=== PATIENT | female | born 1995 | race Caucasian/White ===

== ENCOUNTER 2017-03-05 00:43 | Emergency (ER) | payer MEDICAID, OTHER ==
[~2017-03-05] VITALS: Ht 162.6 cm; Wt 81.0 kg
[~2017-03-05 00:43] MED LIST: DENIES
[2017-03-05 00:48] VITALS: Ht 162.6 cm; Wt 81.0 kg
[2017-03-05] MEDS ORDERED: ONDANSETRON 4 MG INJ IV STA (01:24)
[2017-03-05] MEDS ORDERED: morphine 4 MG/ML VIAL IV STA (01:24)
[2017-03-05] MEDS ORDERED: SOD CHLORIDE 0.9% 1,000 ML IV STA (01:24)
[2017-03-05 02:02] LABS: BASOPHILS % 0.1 % (0.0-2.0); EOSINOPHILS # 0.1 10^3/ul (0.0-0.5); EOSINOPHILS % 1.2 % (0.0-7.0); HEMATOCRIT 36.6 % (37.0-47.0); HEMOGLOBIN 12.4 g/dl (12.0-16.0); LYMPHOCYTES % 31.1 % (15.0-51.0); MEAN CORPUSCULAR HEMOGLOBIN 31.8 pg (29.0-33.0); MEAN CORPUSCULAR HGB CONC 33.9 g/dl (32.0-37.0); MEAN CORPUSCULAR VOLUME 93.8 fl (82.0-101.0); MEAN PLATELET VOLUME 12.6 fl (7.4-10.4); MONOCYTE # 0.6 10^3/ul (0.3-0.9); MONOCYTES % 6.4 % (0.0-11.0); PLATELET COUNT 241 10^3/UL (140-415); WHITE BLOOD COUNT 9.8 10^3/ul (4.8-10.8)
--- NOTE | 2017-03-05 02:06 | ERA ---
ER Documentation Chief Complaint Date/Time DATE: 03/05/17 TIME: 02:02 Chief Complaint c/o pelvic pain x 1 day radiates to abdomen and chest. HPI 22-year-old female with a chief complaint of upper abdominal pain beginning shortly after eating this afternoon. Patient also complains of lower pelvic pain. Denies shortness of breath, chest pain, cough, back pain. Patient states that she has had symptoms like this before and was diagnosed with cholelithiasis. Patient has also had ovarian cysts. Pain is 7 out of 10. Has no other complaints and describes no other associated manifestations. Has not taken any medications to relieve the symptoms. ROS All systems reviewed and are negative except as per history of present illness. Medications Home Meds Reported Medications [Denies] No Conflict Check 11/05/09 Allergies Allergies: Coded Allergies: No Known Drug Allergies (Verified Allergy, Mild, 03/26/11) PMhx/Soc History of Surgery: Yes (STATES HAD INCISSION DUE EYE INFECTION 4 YEARS AGO) Anesthesia Reaction: No Hx Neurological Disorder: No Hx Respiratory Disorders: No Hx Cardiac Disorders: No Hx Psychiatric Problems: No Hx Miscellaneous Medical Probl: No Hx Alcohol Use: No Hx Substance Use: No Hx Tobacco Use: No Smoking Status: Never smoker Physical Exam Vitals Vital Signs Date Time Temp Pulse Resp B/P Pulse Ox O2 Delivery O2 Flow Rate FiO2 03/05/17 00:48 97.1 77 18 127/60 99 Physical Exam Const: [] Head: Atraumatic Eyes: Normal Conjunctiva ENT: Normal External Ears, Nose and Mouth. Neck: Full range of motion..~ No meningismus. Resp: Clear to auscultation bilaterally Cardio: Regular rate and rhythm, no murmurs Abd: Soft, nondistended. Right upper quadrant tenderness. No pelvic tenderness. No suprapubic tenderness Normal bowel sounds Skin: No petechiae or rashes Back: No midline or flank tenderness Ext: No cyanosis, or edema Neur: Awake and alert. Neurovascularly intact bilaterally. Psych: Normal Mood and Affect Result Diagram: 03/05/1713403/05/17134 Results 24 hrs Laboratory Tests Test 03/05/17 01:35 03/05/17 02:39 White Blood Count 9.810^3/ul Red Blood Count 3.9010^6/ul Hemoglobin 12.4g/dl Hematocrit 36.6% Mean Corpuscular Volume 93.8fl Mean Corpuscular Hemoglobin 31.8pg Mean Corpuscular Hemoglobin Concent 33.9g/dl Red Cell Distribution Width 12.0% Platelet Count 39179^3/UL Mean Platelet Volume 12.6fl Neutrophils % 61.0% Lymphocytes % 31.1% Monocytes % 6.4% Eosinophils % 1.2% Basophils % 0.1% Nucleated Red Blood Cells % 0.0/100WBC Neutrophils # 6.010^3/ul Lymphocytes # 3.010^3/ul Monocytes # 0.610^3/ul Eosinophils # 0.110^3/ul Basophils # 0.010^3/ul Nucleated Red Blood Cells # 0.010^3/ul Sodium Level 139mmol/L Potassium Level 3.9mmol/L Chloride Level 105mmol/L Carbon Dioxide Level 29mmol/L Anion Gap 9 Blood Urea Nitrogen 13mg/dl Creatinine 0.65mg/dl Glucose Level 93mg/dl Calcium Level 9.4mg/dl Total Bilirubin 0.0mg/dl Direct Bilirubin 0.00mg/dl Indirect Bilirubin 0.0mg/dl Aspartate Amino Transf (AST/SGOT) 17IU/L Alanine Aminotransferase (ALT/SGPT) 23IU/L Alkaline Phosphatase 78IU/L Total Protein 7.2g/dl Albumin 3.9g/dl Globulin 3.30g/dl Albumin/Globulin Ratio 1.18 Lipase 73U/L Bedside Urine pH (LAB) 6.5 Bedside Urine Protein (LAB) Trace Bedside Urine Glucose (UA) Negative Bedside Urine Ketones (LAB) Negative Bedside Urine Blood Negative Bedside Urine Nitrite (LAB) Negative Bedside Urine Leukocyte Esterase (L 1+ Current Medications Medications (Trade) Dose Ordered Sig/Emily Route PRN Reason Start Time Stop Time Status Last Admin Dose Admin Sodium Chloride (NS) 1,000 ml @ 1,000 mls/hr Q1H STAT IV 03/05/17 01:24 03/05/17 02:23 DC 03/05/17 01:42 Morphine Sulfate (morphine) 4 mg ONCE STAT IV 03/05/17 01:24 03/05/17 01:25 DC 03/05/17 01:42 Ondansetron HCl (Zofran Inj) 4 mg ONCE STAT IV 03/05/17 01:24 03/05/17 01:25 DC 03/05/17 01:41 Procedures/MDM as described in history and physical examination. ED treatment consisted of 1 L normal saline, 4 mg IV morphine, 4 mg IV Zofran with adequate relief of symptoms. test: Unremarkable CBC:Unremarkable CMP:Unremarkable Lipase:Within normal limits Urinalysis:1+ leukocyte esterase Ultrasound was read by the radiologist given the following impression: Cholelithiasis without evidence of cholecystitis. Ultrasound of the pelvis was read by the radiologist result in the following: No torsion, 1.4 follicular cyst. Most likely diagnosis is follicular cyst and cholelithiasis. Outpatient treatment will consist of [id number] ibuprofen. At this time I do not suspect pneumonia, ovarian torsion, PID, cholangitis, cholecystitis, intestinal ischemia or pyelonephritis. As well as hepatitis, appendicitis, acute pancreatitis, or other acute pathologies. Due to chance of pelvic pain being secondary to urinary tract infection, patient will be treated with Macrobid 5 days. Upon reevaluation patient had improved. The patient is well appearing, and tolerates PO. I have spoke with the patient regarding their condition and future management. They have verbally responded that they understand their status and treatment plan. The patients vitals are stable, and their current condition is appropriate for discharge. The patient will be given discharge instructions with return precautions. Departure Diagnosis: Primary Impression: Cholelithiases Qualified Code: K80.80 - Biliary calculus of other site without obstruction Additional Impressions: Acute pain in female pelvis Ovarian cyst Qualified Code: N83.202 - Cyst of left ovary Condition: Stable Additional Instructions: Follow up with your PCP within the next 1-3 days for a more thorough evaluation and a possible referral to a specialist. Return the the emergency department immediately if symptoms worsen or change. If you have any questions regarding medications, ask your pharmacist or us before you leave. If any adverse reactions occur while taking your medications, discontinue the treatment and return to the emergency department immediately. Take your medications as directed, and complete the entire course of treatment. ANANT SEPULVEDA PA-C Mar 05, 2017 02:06
--- NOTE | 2017-03-05 02:16 | RADRPT ---
PROCEDURE: Abdominal ultrasound, limited. CLINICAL INDICATION: Abdominal pain. TECHNIQUE: Multiple real-time images were acquired of the patient's right upper abdomen utilizing a high resolution transducer. COMPARISON: None FINDINGS: The liver demonstrates normal echogenicity and size measuring 17.2 cm. There is no focal mass or in trahepatic biliary ductal dilatation. The portal vein is patent. The gallbladder is not distended. Multiple echogenic gallstones are identified. There is no pericholecystic fluid or gallbladder wa ll thickening. The common bile duct measures 4.0 mm in maximal dimension. The visualized portions of the pancreas are unremarkable. No free fluid is identified. The right kidney is normal size and echogenicity measuring 10.5 cm. There is no focal renal mass or echogenic calculus identified. There is no obstructive uropathy. IMPRESSION: Cholelithiasis without ultrasound evidence of cholecystitis. .Malcolm Silva MD, MD Date Time Electronically viewed and signed by .Malcolm Silva MD, MD on 03/05/2017 02:16 .T/
[2017-03-05 02:19] LABS: ALBUMIN 3.9 g/dl (3.3-4.9); ALBUMIN/GLOBULIN RATIO 1.18; CALCIUM 9.4 mg/dl (8.4-10.2); CREATININE 0.65 mg/dl (0.44-1.00); POTASSIUM 3.9 mmol/L (3.5-5.1); TOTAL PROTEIN 7.2 g/dl (6.1-8.1)
[2017-03-05 02:32] LABS: URINE BLOOD (Dip) POC Negative (NEGATIVE)
--- NOTE | 2017-03-05 02:35 | RADRPT ---
PROCEDURE: Pelvic ultrasound, limited. CLINICAL INDICATION: Pelvic pain. TECHNIQUE: Multiple sonographic images of the pelvis were obtained utilizing a transabdominal selina hnique. The images were reviewed on a PACS workstation. COMPARISON: None. FINDINGS: The uterus is visualized and measures 7.7 x 3.4 x 4.1 cm. No abnormal uterine mass is identified. T he endometrial echo complex is homogeneous and measures 2.1 mm. There is no evidence for free fluid. The right ovary has a normal echotexture and measures 3.2 x 2. 1 x 2.1 cm. The left ovary has a normal echotexture and measures 3.3 x 2.5 x 1.9 cm. There is norm al flow to both ovaries. There is a follicular cyst within the left ovary measuring 1.4 x 1.4 x 1.1 cm. No adnexal masses are identified. IMPRESSION: Unremarkable pelvic ultrasound. Left ovarian 1.4 cm follicular cyst. .Malcolm Silva MD, Date Time Electronically viewed and signed by .Malcolm Silva MD, MD on 03/05/2017 02:34 .T/
[2017-03-05 03:14] LABS: ADD UMIC YES; UR ASCORBIC ACID NEGATIVE (NEGATIVE); UR BILIRUBIN (Dip) NEGATIVE (NEGATIVE); UR BLOOD (Dip) NEGATIVE (NEGATIVE); UR CLARITY SLIGHTLY CLOUDY (CLEAR); UR COLOR YELLOW (YELLOW); UR GLUCOSE (Dip) NEGATIVE (NEGATIVE); UR KETONES (Dip) NEGATIVE (NEGATIVE); UR LEUKOCYTE ESTERASE (Dip) 2+ Leu/ul (NEGATIVE); UR MUCUS FEW /HPF (NONE SEEN); UR NITRITE (Dip) NEGATIVE (NEGATIVE); UR RBC 1 /HPF (0-5); UR SPECIFIC GRAVITY (Dip) 1.026 (1.003-1.030); UR SQUAMOUS EPITHELIAL CELL FEW /HPF (FEW); UR TOTAL PROTEIN (Dip) NEGATIVE (NEGATIVE); UR UROBILINOGEN (Dip) NEGATIVE (NEGATIVE)
[2017-03-05 03:15] VITALS: BP 115/66; PULSE 83; RESP 17; TEMP 97.7
== END 2017-03-05 03:15 | disposition home or self-care (01) ==
LOC: FTE 00:43
DX: K80.80 Other cholelithiasis without obstruction (principal); N83.202 Unspecified ovarian cyst, left side
CPT/HCPCS: 36415; 76705; 76856; 80053; 81001; 83690; 85025; 96361; 96374; 96375; J2270; J2405; J7030; Z7502; 81003